=== PATIENT | female | born 1985 ===

== ENCOUNTER 2020-07-17 09:08 | Inpatient (IN) | payer OTHER ==
[~2020-07-17] VITALS: Ht 160 cm; Wt 75.0 kg
[2020-07-23] MEDS: LACTATED RINGERS 1,000 ML IV SCH ×2 (08:16→17:33)
[2020-07-23] MEDS ORDERED: FENTANYL PF 100 MCG/2ML IVPush PRN (08:30)
[2020-07-23] MEDS ORDERED: TERBUTALINE 1 MG/ML, 1ML IVPush PRN (08:30)
[2020-07-23] MEDS ORDERED: PENICILLIN GK 5,000,000 UNITS in DEXTROSE 5% 100 ML IVPB ONE (08:30)
[2020-07-23] MEDS ORDERED: OXYTOCIN 30U/ 0.9% NaCL 500ML 500 ML IV ONE (08:30)
[2020-07-23] MEDS ORDERED: FENTANYL PF 100 MCG/2ML IV PRN (08:30)
[2020-07-23] MEDS ORDERED: TERBUTALINE 1 MG/ML, 1ML SQ PRN (08:30)
[2020-07-23 08:37] LABS: BASOPHILS % (AUTO) 1 % (0-1); EOSINOPHILS % (AUTO) 2 % (1-7); LYMPHOCYTES % (AUTO) 19 % (22-44); MEAN CORPUSCULAR HEMOGLOBIN 32.7 pg (27.0-34.8); MEAN CORPUSCULAR HGB CONC 33.8 g/dL (32.4-35.8); MEAN PLATELET VOLUME 8.8 fL (7.4-10.4); MONOCYTES % (AUTO) 8 % (2-9); NEUTROPHILS % (AUTO) 71 % (42-75); PLATELET COUNT 271 x10^3/uL (130-400); RED BLOOD COUNT 3.87 x10^6/uL (3.82-5.3); RED CELL DISTRIBUTION WIDTH 14.5 % (9.6-15.2)
[2020-07-23 08:39] LABS: MD NO
[2020-07-23] MEDS ORDERED: LIDOCAINE 1%, 20ML ONE (08:39)
[2020-07-23] MEDS ORDERED: NEWBORN KIT ONE (08:39)
[2020-07-23] MEDS ORDERED: MISOPROSTOL 200 MCG TABLET ONE (08:39)
[2020-07-23] MEDS ORDERED: MISOPROSTOL 25 MCG TABLET ONE (08:39)
[2020-07-23] MEDS ORDERED: D5%-LACTATED RINGERS 1,000 ML IV SCH (09:00)
[2020-07-23] MEDS ORDERED: MISOPROSTOL 25 MCG TABLET VG PRN (09:00)
[2020-07-23 09:05] VITALS: BP 119/80
[2020-07-23] MEDS: PENICILLIN GK 2,500,000 UNITS in DEXTROSE 5% 100 ML IVPB SCH ×3 (12:45→21:00)
[2020-07-23] MEDS ORDERED: OXYTOCIN 30U/ 0.9% NaCL 500ML 500 ML IV PRN (13:00)
[2020-07-23] MEDS ORDERED: FENTANYL/BUPIV./NS/PF 250 ML EPIDCONT ONE (17:26)
[2020-07-23] MEDS ORDERED: LACTATED RINGERS 1,000 ML IVBOLUS PRN (18:00)
[2020-07-23] MEDS ORDERED: EPHEDRINE 50 MG/ML, 1ML IVPush PRN (18:00)
[2020-07-23] MEDS ORDERED: NALOXONE 0.4 MG/ML, 1ML IVPush PRN (18:00)
[2020-07-23] MEDS ORDERED: FENTANYL/BUPIV./NS/PF 250 ML EPIDCONT SCH (18:00)
[2020-07-23] MEDS ORDERED: LACTATED RINGERS 1,000 ML IV SCH (18:00)
[2020-07-23] MEDS ORDERED: LACTATED RINGERS 1,000 ML INTUTE PRN (19:00)
[2020-07-23] MEDS ORDERED: LACTATED RINGERS 1,000 ML INTUTE ONE (19:00)
[2020-07-23 19:10] LABS: ALBUMIN 2.4 g/dL (3.4-5.0); ANION GAP 8 mmol/L (5-15); CHLORIDE 106 mmol/L (98-107)
[2020-07-23 19:14] LABS: ALANINE AMINOTRANSFERASE 12 U/L (12-78); ALKALINE PHOSPHATASE 213 U/L (45-117); BILIRUBIN,TOTAL 0.4 mg/dL (0.2-1.0); CREATININE 0.71 mg/dL (0.55-1.02)
[2020-07-23 19:23] LABS: CREATININE,URINE RANDOM 53.3 mg/dL
[2020-07-24] MEDS: PENICILLIN GK 2,500,000 UNITS in DEXTROSE 5% 100 ML IVPB SCH ×3 (00:42→08:47)
[2020-07-24] MEDS: LACTATED RINGERS 1,000 ML IV SCH ×4 (00:42→20:00)
[2020-07-24] MEDS ORDERED: SODIUM CITRATE/CITRIC ACID 15 ML UDC ONE (07:16)
[2020-07-24] MEDS ORDERED: METOCLOPRAMIDE 5 MG/ML, 2ML ONE (07:16)
[2020-07-24 07:30] VITALS: BP 141/72
[2020-07-24] MEDS ORDERED: BUPIVACAINE 0.25% ONE (08:20)
[2020-07-24] MEDS ORDERED: FENTANYL PF 100 MCG/2ML ONE (10:49)
[2020-07-24] MEDS ORDERED: LIDOCAINE-MPF 2% ,5ML ONE ×5 (10:50→11:36)
[2020-07-24] MEDS ORDERED: KETOROLAC 30 MG/1 ML ONE (10:50)
[2020-07-24] MEDS ORDERED: SODIUM BICARBONATE 1 MEQ/ML, 50ML VIAL ONE (10:50)
[2020-07-24] MEDS ORDERED: OXYTOCIN 10 UNITS/ML, 1ML ONE ×4 (10:50)
[2020-07-24] MEDS ORDERED: CEFAZOLIN 1,000 MG ONE ×2 (10:50)
[2020-07-24] MEDS ORDERED: SODIUM CITRATE/CITRIC ACID 30 ML UDC PO ONE (11:00)
[2020-07-24] MEDS ORDERED: METOCLOPRAMIDE 5 MG/ML, 2ML IV ONE (11:00)
[2020-07-24] MEDS ORDERED: AZITHROMYCIN 500 MG in SODIUM CHLORIDE 0.9% 250 ML IV ONE (11:00)
[2020-07-24] MEDS ORDERED: LACTATED RINGERS 1,000 ML IVBOLUS ONE (11:00)
[2020-07-24] MEDS ORDERED: IBUPROFEN 600 MG TABLET PO SCH (12:00)
[2020-07-24] MEDS ORDERED: ONDANSETRON 2MG/ML, 2ML IV PRN ×2 (12:00)
[2020-07-24] MEDS ORDERED: LACTATED RINGERS 1,000 ML IV SCH ×3 (12:00)
[2020-07-24] MEDS ORDERED: DOCUSATE 100 MG CAPSULE PO PRN (12:00)
[2020-07-24] MEDS ORDERED: MISOPROSTOL 200 MCG TABLET PR PRN ×2 (12:00)
[2020-07-24] MEDS: OXYTOCIN 30U/ 0.9% NaCL 500ML 500 ML IV SCH ×2 (12:00→22:00)
[2020-07-24] MEDS ORDERED: KETOROLAC 30 MG/1 ML IV PRN (12:00)
[2020-07-24] MEDS ORDERED: OXYTOCIN 30U/ 0.9% NaCL 500ML 500 ML IV SCH (12:00)
[2020-07-24] MEDS: IBUPROFEN 600 MG TABLET PO SCH ×2 (12:00→17:40)
[2020-07-24] MEDS ORDERED: OXYcodone IR 5MG TABLET PO PRN ×4 (12:00)
[2020-07-24] MEDS ORDERED: SIMETHICONE 80 MG CHEW TAB PO PRN (12:00)
[2020-07-24] MEDS ORDERED: morphine SULFATE 10 MG/ML, 1ML IVPush PRN (12:30)
[2020-07-24] MEDS ORDERED: DIPHENHYDRAMINE 50 MG/ML, 1ML IVPush PRN (12:30)
[2020-07-24] MEDS ORDERED: OXYcodone 5 MG/5 ML ORAL.SOL UDC PO PRN (12:30)
[2020-07-24] MEDS ORDERED: LABETALOL 5MG/ML, 20ML IV PRN (12:30)
[2020-07-24] MEDS ORDERED: EPHEDRINE 50 MG/ML, 1ML IVPush PRN (12:30)
[2020-07-24] MEDS ORDERED: FENTANYL PF 100 MCG/2ML IV PRN (12:30)
[2020-07-24] MEDS ORDERED: ONDANSETRON 2MG/ML, 2ML IVPush PRN (12:30)
[2020-07-24] MEDS ORDERED: MEPERIDINE/PF 25MG/0.5ML IVPush PRN (12:30)
[2020-07-24 14:15] VITALS: BP 115/73
[2020-07-24] MEDS ORDERED: ACETAMINOPHEN 325 MG TABLET PO SCH (15:00)
[2020-07-24] MEDS: ACETAMINOPHEN 325 MG TABLET PO SCH ×2 (15:59→21:08)
[2020-07-24] MEDS: KETOROLAC 30 MG/1 ML IV PRN (18:05)
[2020-07-24 18:15] VITALS: BP 107/70
[2020-07-24 19:12] LABS: BASOPHILS % (AUTO) 1 % (0-1); EOSINOPHILS % (AUTO) 0 % (1-7); LYMPHOCYTES % (AUTO) 10 % (22-44); MEAN CORPUSCULAR HEMOGLOBIN 32.7 pg (27.0-34.8); MEAN CORPUSCULAR HGB CONC 34.3 g/dL (32.4-35.8); MEAN PLATELET VOLUME 8.6 fL (7.4-10.4); MONOCYTES % (AUTO) 7 % (2-9); NEUTROPHILS % (AUTO) 82 % (42-75); PLATELET COUNT 194 x10^3/uL (130-400); RED BLOOD COUNT 2.91 x10^6/uL (3.82-5.3); RED CELL DISTRIBUTION WIDTH 14.3 % (9.6-15.2)
[2020-07-24 19:15] LABS: MD NO
[2020-07-24 20:00] VITALS: BP 113/75
[2020-07-24] MEDS: DOCUSATE 100 MG CAPSULE PO PRN (21:08)
[2020-07-25] VITALS: BP 111/69
[2020-07-25] MEDS: KETOROLAC 30 MG/1 ML IV PRN ×2 (00:06→06:07)
[2020-07-25] MEDS: ACETAMINOPHEN 325 MG TABLET PO SCH ×4 (03:26→21:40)
[2020-07-25 04:00] VITALS: BP 114/68
[2020-07-25] MEDS: LACTATED RINGERS 1,000 ML IV SCH ×4 (04:00→23:18)
[2020-07-25] MEDS: IBUPROFEN 600 MG TABLET PO SCH ×5 (06:00→23:40)
[2020-07-25 07:30] VITALS: BP 109/71
[2020-07-25] MEDS: OXYTOCIN 30U/ 0.9% NaCL 500ML 500 ML IV SCH ×3 (08:00→23:17)
[2020-07-25 08:10] LABS: BASOPHILS % (AUTO) 1 % (0-1); EOSINOPHILS % (AUTO) 1 % (1-7); LYMPHOCYTES % (AUTO) 12 % (22-44); MEAN PLATELET VOLUME 8.7 fL (7.4-10.4); MONOCYTES % (AUTO) 7 % (2-9); NEUTROPHILS % (AUTO) 80 % (42-75); PLATELET COUNT 195 x10^3/uL (130-400); RED BLOOD COUNT 2.59 x10^6/uL (3.82-5.3); RED CELL DISTRIBUTION WIDTH 14.9 % (9.6-15.2)
[2020-07-25 08:14] LABS: MD NO
[2020-07-25] MEDS ORDERED: PRENATAL VIT/IRON/FA 1 EACH TABLET PO SCH (09:00)
[2020-07-25] MEDS: DOCUSATE 100 MG CAPSULE PO PRN (09:55)
[2020-07-25] MEDS: PRENATAL VIT/IRON/FA 1 EACH TABLET PO SCH (09:55)
[2020-07-25 18:55] VITALS: BP 107/64
[2020-07-26] MEDS: ACETAMINOPHEN 325 MG TABLET PO SCH ×4 (03:45→23:01)
[2020-07-26] MEDS: IBUPROFEN 600 MG TABLET PO SCH ×3 (06:10→18:20)
[2020-07-26 07:10] VITALS: BP 105/67
[2020-07-26] MEDS: PRENATAL VIT/IRON/FA 1 EACH TABLET PO SCH (10:31)
[2020-07-26 20:40] VITALS: BP 121/79
[2020-07-26] MEDS: SIMETHICONE 80 MG CHEW TAB PO PRN (23:01)
[2020-07-26] MEDS: DOCUSATE 100 MG CAPSULE PO PRN (23:01)
[2020-07-27] MEDS: IBUPROFEN 600 MG TABLET PO SCH ×2 (00:47→06:23)
[2020-07-27] MEDS: ACETAMINOPHEN 325 MG TABLET PO SCH ×2 (05:32→11:37)
[2020-07-27 08:10] VITALS: BP 126/80
[2020-07-27] MEDS: DOCUSATE 100 MG CAPSULE PO PRN (09:14)
[2020-07-27] MEDS: SIMETHICONE 80 MG CHEW TAB PO PRN (09:14)
[2020-07-27] MEDS: PRENATAL VIT/IRON/FA 1 EACH TABLET PO SCH (09:14)
[2020-07-27] MEDS ORDERED: IBUP-1222 PO (10:15)
[2020-07-27] MEDS ORDERED: OXYC1TAB14 PO (10:16)
== END 2020-07-27 11:45 | disposition home or self-care (01) | DRG 787 ==
LOC: LDIP 07-23 08:06 → 2NW 07-24 14:03
PROVIDERS: ADMIT Student in an Organized Health Care Education/Training Program; ATTEND Student in an Organized Health Care Education/Training Program
PROC: 10D00Z1 Extraction of Products of Conception, Low, Open Approach (ICD-10-PCS; principal; 2020-07-24)
PROC: 10907ZC Drainage of Amniotic Fluid, Therapeutic from Products of Conception, Via Natural or Artificial Opening (ICD-10-PCS; 2020-07-24)
PROC: 10H07YZ Insertion of Other Device into Products of Conception, Via Natural or Artificial Opening (ICD-10-PCS; 2020-07-24)
DX: O24.420 Gestational diabetes mellitus in childbirth, diet controlled (principal); D62 Acute posthemorrhagic anemia; Z37.0 Single live birth; O48.0 Post-term pregnancy; O77.0 Labor and delivery complicated by meconium in amniotic fluid; O99.284 Endocrine, nutritional and metabolic diseases complicating childbirth; E55.9 Vitamin D deficiency, unspecified; O99.824 Streptococcus B carrier state complicating childbirth; Z80.3 Family history of malignant neoplasm of breast; Z83.3 Family history of diabetes mellitus; Z20.822 Contact with and (suspected) exposure to COVID-19; Z3A.41 41 weeks gestation of pregnancy; O14.94 Unspecified pre-eclampsia, complicating childbirth; O13.4 Gestational [pregnancy-induced] hypertension without significant proteinuria, complicating childbirth; O66.40 Failed trial of labor, unspecified; O90.81 Anemia of the puerperium
CPT/HCPCS: 36415; J3490; 80053; 82570; 82962; 84156; 85025; 86592; 86850; 86900; 87635; G0378; J0456; J0690; J1885; J2540; J3010; J2590; J2765; J7050; J7120